=== PATIENT | female | born 1990 | race Caucasian/White ===

== ENCOUNTER → 2019-11-27 11:54 | Outpatient (BNVA) | payer BC, SELFPAY | PROVIDERS: Family Provider Physician Assistant Medical; PCP Physician Assistant Medical; Visit Provider Obstetrics & Gynecology | DX: E28.2 Polycystic ovarian syndrome (principal); N76.0 Acute vaginitis; B96.89 Other specified bacterial agents as the cause of diseases classified elsewhere | CPT/HCPCS: 87210 ==

== ENCOUNTER → 2022-04-02 12:16 | Outpatient (BNVA) | payer BC, SELFPAY | PROVIDERS: Family Provider Physician Assistant Medical; PCP Nurse Practitioner Family; Referring Provider Nurse Practitioner Family; Visit Provider Internal Medicine | DX: E83.52 Hypercalcemia (principal); E55.9 Vitamin D deficiency, unspecified; E04.1 Nontoxic single thyroid nodule | CPT/HCPCS: 36415; 82306; 82310; 83970 ==

== ENCOUNTER 2022-07-02 09:33 | Outpatient (CLI) | payer BC, SELFPAY ==
--- NOTE | 2022-07-02 09:41 | NM_ITS ---
WS: [id number] NUCLEAR MEDICINE PARATHYROID STUDY INDICATION: Hypercalcemia. Suspicious nodule on ultrasound. TECHNIQUE: 20.5 mCi technetium 99m sestamibi. Initial and delayed imaging obtained with chin and supr asternal notch markers. FINDINGS: Normal salivary gland uptake. Thyroid washout on the delayed imaging with persistent increa sed uptake in the RIGHT thyroid overlying the upper pole suspicious for parathyroid adenoma. Recommen d correlation with thyroid ultrasound. No prior studies available for comparison today. NM/NM parathyroid [id number] IMPRESSION: Persistent activity overlying the RIGHT upper thyroid pole on the d elayed imaging suspicious for parathyroid adenoma. Recommend correlation with r eported outside ultrasound and laboratory studies
== END 2022-07-02 09:34 | disposition home or self-care (01) ==
PROVIDERS: Family Provider Physician Assistant Medical; PCP Nurse Practitioner Family; Visit Provider Internal Medicine
DX: E83.52 Hypercalcemia (principal)
CPT/HCPCS: 78070; A9500